=== PATIENT | male | born 1995 | race Caucasian/White ===

== ENCOUNTER 2017-10-16 09:14 | Emergency (ER) | payer SELFPAY, OTHER | END 2017-10-16 10:46 | disposition home or self-care (01) | LOC: M ED 09:14 | DX: M65.841 Other synovitis and tenosynovitis, right hand (principal) | CPT/HCPCS: 73130 ==

== ENCOUNTER 2017-10-25 00:20 | Emergency (ER) | payer SELFPAY, OTHER ==
[2017-10-25] MEDS: IBUPROFEN 600 MG TAB PO (01:41)
== END 2017-10-25 02:09 | disposition home or self-care (01) ==
LOC: M ED 00:20
DX: S00.03XA Contusion of scalp, initial encounter (principal); Y04.8XXA Assault by other bodily force, initial encounter; Y92.139 Unspecified place military base as the place of occurrence of the external cause
CPT/HCPCS: 99283